=== PATIENT | female | born 1945 | race Caucasian/White ===

== ENCOUNTER → 2016-08-16 | Outpatient (CLI) | payer MEDICARE, OTHER ==
[~2016-08-16] MED LIST: AMLODIPINE BES2.5 MG PO; ASPIRIN EC81 MG PO; BENADRYL25 MG PO; CALCIUM 600 +1 EAC6 PO; CARVEDILOL12.5 MG PO; CELEXA20 MG PO; COLACE100 MG PO; DAILY VALUE1 EACH PO; DESYREL50 MG PO; FLEXERIL10 MG PO; IBUPROFEN800 MG PO; LIPITOR20 M1 PO; MIRALAX17 GM PO; OMEPRAZOLE40 MG PO; ROXICODONE 5MG (5 MG PO; TYLENOL EXTRA500 MG PO; VITAMIN D1000 UNIT PO; XANAX0.25 MG PO; XARELTO10 MG PO
== END | disposition disaster alternative care site (69) ==
LOC: GRAD 11:30
DX: M25.561 Pain in right knee (principal); M71.21 Synovial cyst of popliteal space [Baker], right knee; M25.461 Effusion, right knee

== ENCOUNTER 2016-09-04 14:39 | Emergency (ER) | payer MEDICARE, OTHER ==
--- NOTE | ~2016-09-04 | ER ---
PATIENT'S NAME: DARELL LEAL [facility] AGE: 71 Y [address] ROOM: [place] [address] LOCATION: ED ADMIT DATE: 09/04/2016 ER/Outpatient Report DISCHARGE DATE: 09/04/2016 FAMILY PHYSICIAN: Pawel Gardiner MD ATTENDING PHYSICIAN: William Rincon Time of Arrival: 1446 hours. Time of Evaluation/Exam: 1447 hours. CHIEF COMPLAINT: Bilateral knee pain. HISTORY OF PRESENT ILLNESS: The patient states that she is scheduled to have her left knee replaced on September [address] Welsh. She states that her pain has increased tremendously in the last 2 days and that she just can't take it anymore. She states that her left knee joint has been worse than the right until she fell in February, now both knees hurt, but again the left one is worse than the right so we are going to start with that one for her surgery. She has not fallen recently, has not had any trauma to her knees. 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 She has been taking ibuprofen without relief. ALLERGIES: NO KNOWN ALLERGIES. CURRENT MEDICATIONS: On her chart and reviewed by me. PAST MEDICAL HISTORY: 1. Chronic back pain. 2. Knee pain. 3. Depression. 4. Hypertension. 5. Anxiety. 6. Hypercholesterolemia. PAST SURGICAL HISTORY: Back surgery. SOCIAL HISTORY: She presents to the ER accompanied by her . Denies use of tobacco, drugs, or alcohol. REVIEW OF SYSTEMS: PATIENT'S NAME: DARELL LEAL [facility] AGE: 71 Y [address] ROOM: [place] [address] LOCATION: ED ADMIT DATE: 09/04/2016 ER/Outpatient Report DISCHARGE DATE: 09/04/2016 FAMILY PHYSICIAN: Pawel Gardiner MD ATTENDING PHYSICIAN: William Rincon All negative other than those mentioned in the HPI. PHYSICAL EXAMINATION: VITAL SIGNS: She weighed 104.7 kg. Blood pressure is 149/66, pulse is 67, respirations 16, temperature of 97.6, and O2 saturation is 97% on room air. GENERAL APPEARANCE: She is awake, alert, and oriented x4. SKIN: [place], warm, and dry. RESPIRATORY: Respirations are even and nonlabored. Lung sounds are clear throughout. HEART: Regular rate and rhythm. ABDOMEN: Soft and nondistended. Bowel sounds are present. EXTREMITIES: She has generalized discomfort of her knees when she is up and walking. She has nonpitting edema of the ankle areas bilaterally. EMERGENCY DEPARTMENT COURSE: Dr. Welsh did call prior to the patient coming in. The patient's had called him and stated that the patient was in so much pain that she just wanted him to shoot her. I did question the patient regarding her desire to harm herself and she states no, I just want the pain to get better. She has no intention of harming herself at this time. The patient was given [place] 5/325 x2 tablets. Monitored for approximately 10 minutes. She states she has had the medicine before, has never had a reaction before. She denied having any difficulty breathing. IMPRESSION: Bilateral knee pain. PLAN: Home, rest. Ice or heat to the knees. Prescription was written for [place]. She is to follow up with Dr. Welsh or her primary provider if symptoms worsen. She verbalizes understanding. REMIGIO MARIE APRN FOR DO JAMES RAUSCH/madeleine /[id number] d: 09/04/162057 t: 09/08/16699, OUTPATIENT REPORT
== END 2016-09-04 15:16 | disposition disaster alternative care site (69) ==
LOC: GMED 14:39
DX: M25.561 Pain in right knee (principal); M25.562 Pain in left knee; G89.29 Other chronic pain; F32.9 Major depressive disorder, single episode, unspecified; I10 Essential (primary) hypertension; F41.9 Anxiety disorder, unspecified; E78.00 Pure hypercholesterolemia, unspecified; Z79.1 Long term (current) use of non-steroidal anti-inflammatories (NSAID); Z98.890 Other specified postprocedural states

== ENCOUNTER 2016-09-13 08:00 | Inpatient (IN) | payer MEDICARE, OTHER ==
[~2016-09-13] VITALS: Ht 160 cm; Wt 100.9 kg
--- NOTE | ~2016-09-13 | OR ---
PATIENT'S NAME: DARELL LEAL [facility] AGE: 71 Y [address] ROOM: [place] [address] LOCATION: [facility] ADMIT DATE: 09/27/2016 OR/Procedure Report DISCHARGE DATE: FAMILY PHYSICIAN: Pawel Gardiner MD ATTENDING PHYSICIAN: GWEN NEVILLE SURGEON: Gwen Neville MD GOOD HUMOR VENDOR: 1. KATTY Kirkland. 2. Wallace Kirk CST/DAWOOD. DATE OF PROCEDURE: 09/27/2016 PREOPERATIVE DIAGNOSIS: Degenerative joint disease, left knee. POSTOPERATIVE DIAGNOSIS: Degenerative joint disease, left knee. OPERATION: Left total knee arthroplasty with computer navigation. ANESTHESIA: Spinal anesthesia plus adductor canal block plus periarticular local anesthesia (ropivacaine with epinephrine and Toradol). ESTIMATED BLOOD LOSS: Less than 10 mL. DRAIN: None. SPECIMEN: None. COMPLICATIONS: None. IMPLANT SYSTEM: Nasreen Triathlon. 1. Size 3 left posterior stabilized femoral component. 2. Size 2 universal modular tibial baseplate. 3. An 11 mm posterior stabilized size 2 X3 tibial polyethylene insert. 4. A 29 mm oval X3 patellar component. INDICATIONS FOR SURGERY: Darell Leal is a 71-year-old female who presents with advanced left knee degenerative joint disease and associated severely compromised activities of daily living. The patient has decided to proceed with knee replacement after having been thoroughly counseled regarding the associated risks, benefits, and limitations. We have specifically reviewed the risks and implications of infection, deep venous thrombosis, pulmonary embolism, mortality, neurovascular complications, blood transfusion (and associated potential for disease transmission or transfusion reaction), stiffness, instability, mechanical deterioration of the components (due to wear and or loosening), and the potential need for revision. We have also emphasized the importance of active involvement and compliance with post- operative physical therapy as a means of optimizing range of motion and [facility] 71 [facility] [address] ROOM: [place] [address] LOCATION: [facility] ADMIT DATE: 09/27/2016 OR/Procedure Report DISCHARGE DATE: FAMILY PHYSICIAN: Pawel Gardiner MD ATTENDING PHYSICIAN: GWEN NEVILLE functional recovery. Informed consent has been granted. DESCRIPTION OF PROCEDURE: The patient was positioned supine after administration of anesthesia and prophylactic antibiotics. A well-padded pneumatic tourniquet was placed around the left proximal thigh, and the left lower extremity was prepped and draped with vigilant sterile technique. The patient's name as well as the intended operative side and procedure were confirmed with a verbal time-out involving myself, the circulating nurse, the scrub nurse, and the anesthesiologist. Examination under anesthesia demonstrated no active skin lesions or masses. There was a large effusion. There was no erythema. There was no abnormal warmth. There was a large soft tissue envelope surrounding the thigh, knee, and calf. Range of motion under anesthesia was from a 2-degree flexion contracture to 130 degrees of flexion. There was no ligamentous insufficiency. The left lower extremity was elevated and exsanguinated with an Esmarch wrap, and the pneumatic tourniquet was inflated to 300mmHg. The knee was approached through a longitudinal midline incision. A medial parapatellar arthrotomy was performed and the patella was everted. Examination of the joint space demonstrated a large amount of benign-appearing translucent synovial fluid. There was mild generalized nonproliferative synovitis. There were no loose bodies. There was a small osteophyte at the intercondylar notch. The cruciate ligaments were intact. There was complex degenerative tearing of the medial meniscus with a large horizontal cleavage component between the 10 o'clock and 12 o'clock positions. The lateral meniscus was intact. There were small osteophytes at the medial and inferior margins of the patella. There was high-grade partial-thickness articular cartilage loss throughout the majority of the patella. There were intermixed grade 3 and grade 4 degenerative changes throughout the lateral two-thirds of the femoral trochlea. There were small osteophytes at the medial and lateral margins of the femoral trochlea as well as the lateral tibial plateau and medial tibial plateau. There were moderate-sized osteophytes at the medial and lateral femoral condyles. There was full-thickness loss of articular cartilage involving 80% of the medial femoral condyle and a 1.5 cm diameter region at the medial tibial plateau. There was high-grade partial-thickness articular cartilage loss throughout the remainder of the medial tibial plateau. There was a 1 cm diameter region of full-thickness articular cartilage loss at the central aspect of the lateral femoral condyle. There were moderate grade 3 degenerative changes at the medial half of the lateral tibial plateau. Remnants of the menisci and cruciate ligaments were excised. The [email or web address] computer navigation femoral tracker was pinned in place at the distal aspect PATIENT'S NAME: DARELL LEAL [facility] AGE: 71 Y [address] ROOM: [id number] [place], [place] [address] LOCATION: [facility] ADMIT DATE: 09/27/2016 OR/Procedure Report DISCHARGE DATE: FAMILY PHYSICIAN: Pawel Gardiner MD ATTENDING PHYSICIAN: GWEN NEVILLE of the femoral trochlea. Absence of motion between the femur and the tracking device was confirmed manually and visually. Femoral osseous landmarks were obtained in order to calibrate the computer navigation system. Landmarks included the center of rotation of the ipsilateral hip, the center-point of the distal femur, the femoral AP axis, 57 points on the medial femoral condyle articular surface, and 57 points on the lateral femoral condyle articular surface. The [email or web address] computer navigation system was subsequently utilized to position the distal femoral resection block such that the distal femoral resection was performed perfectly perpendicular to the femoral mechanical axis. The distal femoral resection was performed with a [employer] oscillating saw. The [email or web address] computer navigation tibial tracker was pinned in place at the anterior aspect of the tibial plateau. Absence of motion between the tibia and the tracking device was confirmed manually and visually. Tibial osseous landmarks were obtained in order to calibrate the computer navigation system. Landmarks included the center-point of the tibial plateau, the AP tibial axis, 57 points on the medial tibial plateau articular surface, 57 points on the lateral tibial plateau articular surface, the medial malleolus, and the lateral malleolus. The [email or web address] computer navigation system was subsequently utilized to position the proximal tibial resection block such that the proximal tibial resection was performed perfectly perpendicular to the tibial mechanical axis. The proximal tibial resection was performed with a [employer] Precision oscillating saw. Perpendicularity of the tibial resection with respect to the tibial shaft axis was reconfirmed by inserting a spacer- block attached to an extramedullary guide jose daniel. External rotation of the anterior and posterior femoral resections was set parallel to the epicondylar axis and carefully adjusted in order to create a rectangular flexion gap. The box resection was performed with a reciprocating saw. Anterior and posterior chamfer resections were performed with the oscillating saw. Posterior condyle osteophytes were excised with an osteotome. All other osteophytes were excised with a rongeur. Resection of all remnants of the menisci was reconfirmed. Flexion and extension gaps were confirmed to be symmetric and well balanced with a spacer-block technique. The patella resection was performed with an oscillating saw such that the composite thickness of the reconstructed patella was equivalent to the thickness of the [place] patella. Patella tracking was optimal, and there was no need for a lateral retinacular release. All trial components were removed and all prepared osseous surfaces were thoroughly irrigated with pulsatile saline lavage and dried prior to cementing all three components in a single stage using Midway Simplex cement containing pre-mixed tobramycin. All extruded excess cement was removed. The entire PATIENT'S NAME: DARELL LEAL [facility] AGE: 71 Y [address] ROOM: [address] [address] LOCATION: [facility] ADMIT DATE: 09/27/2016 OR/Procedure Report DISCHARGE DATE: FAMILY PHYSICIAN: Pawel Gardiner MD ATTENDING PHYSICIAN: GWEN NEVILLE joint space was thoroughly inspected and thoroughly irrigated with bacteriostatic pulsatile saline lavage to assure that there was no residual debris of any sort. Final range of motion was from full extension (with no passive hyperextension) to 130 degrees of flexion. Patella tracking was reconfirmed to be optimal. There was very good anteroposterior stability at 90 degrees of flexion. There was 0 mm of medial lift-off to valgus stress in full extension. There was less than 1 mm of lateral lift-off to varus stress in full extension. The arthrotomy was closed with multiple simple and [id number] interrupted #1 Vicryl. Subcutaneous tissues were thoroughly re-irrigated with bacteriostatic pulsatile saline lavage. Subcutaneous tissues were re- approximated with simple buried interrupted #0 Vicryl sutures. The skin was closed with simple buried interrupted 2-0 Vicryl sutures followed by surgical quang. The dressing consisted of Xeroform gauze, 4x4 gauze, ABD pads and two 6-inch Zack Wraps. There were no intra-operative complications. It should be noted that the physician's physicians assistant played an active, integral role throughout this entire operation. By providing expert retraction, they greatly facilitated and expedited safe and effective exposure of the distal femur, proximal tibia and patella for preparation and implantation of the components. They were also actively involved in the patient's positioning, prepping and draping, as well as wound closure. MD ESTHELA LEE/madeleine /[id number] d: 09/27/16 1212 t: 10/08/16 0751, OPERATIVE SUMMARY
--- NOTE | ~2016-09-13 | DS ---
PATIENT'S NAME: DARELL LEAL [facility] AGE: 71 Y [address] ROOM: [place] [address] LOCATION: [facility] ADMIT DATE: 09/27/2016 Discharge Summary DISCHARGE DATE: 09/29/2016 FAMILY PHYSICIAN: Pawel Gardiner MD ATTENDING PHYSICIAN: Gwen Neville PRIMARY DIAGNOSIS: Degenerative joint disease of the left knee. SECONDARY DIAGNOSES: 1. Depression and anxiety. 2. Obesity. 3. Hypertension. 4. Hypercholesterolemia. 5. Chronic lumbar spine pain. PROCEDURE PERFORMED: Left total knee arthroplasty. HISTORY: The patient is a 71-year-old female, who presents with advanced left knee degenerative joint disease and associated severely compromised activities of daily living. The patient has decided to proceed with total knee arthroplasty after having been thoroughly counseled regarding the risks, benefits, limitations and alternatives. Please refer to the outpatient clinic notes and admission history and physical for this patient. HOSPITAL COURSE: The patient underwent a left total knee arthroplasty on 09/27/2016 without complications. Spinal anesthesia plus adductor canal block plus periarticular local anesthesia was utilized. The patient received 24 hours of perioperative prophylactic antibiotics and remained hemodynamically stable, neurovascularly intact throughout the entire hospital course. The postoperative prophylactic deep venous thrombosis prophylaxis consisted of Xarelto, early mobilization and pneumatic compression devices. Daily physical therapy for gait training, transfer training range of motion and quadriceps isometric exercises were received. The patient progressed well in physical therapy. On the date of discharge, 09/29/2016, the incision at the knee was healing well and showed no signs of infection. DISPOSITION: Home. DISCHARGE ACTIVITY: The patient is to bear weight as tolerated with range of motion and quadriceps isometric exercises as instructed. The operative extremity is to be elevated at least 90% of the day. There is to be sterile 4x4 gauze dressings to the incision daily. Dr. Neville is to be notified immediately if there is any increased pain, fevers, chills erythema or drainage. PATIENT'S NAME: DARELL LEAL [facility] AGE: 71 Y [address] ROOM: [place] [address] LOCATION: [facility] ADMIT DATE: 09/27/2016 Discharge Summary DISCHARGE DATE: 09/29/2016 FAMILY PHYSICIAN: Pawel Gardiner MD ATTENDING PHYSICIAN: Gwen Neville DISCHARGE MEDICATIONS: 1. Xarelto 10 mg 1 tab p.o. daily for 12 days for postoperative DVT prophylaxis. 2. Oxycodone 5 mg 1 to 2 tabs p.o. every 4 hours p.r.n. for pain. 3. Cyclobenzaprine 10 mg 1 tab t.i.d. p.r.n. for muscle spasms. 4. Acetaminophen 500 mg 2 tablets p.o. every 6 hours p.r.n. for pain. 5. She was then instructed to continue all her other pre-admission medications as instructed by her internal medicine doctor. FOLLOWUP: Followup appointment is to be with Dr. Neville's office on 10/04/2016. SILVANO MASON PA-C FOR GWEN NEVILLE MD SMW/modl /[id number] d: 10/04/16 2222 t: 10/07/16 0933, DISCHARGE SUMMARY
[2016-09-13] MEDS ORDERED: CARVEDILOL12.5 MG PO (08:11)
[2016-09-13] MEDS ORDERED: AMLODIPINE BES2.5 MG PO (08:11)
[2016-09-13] MEDS ORDERED: CELEXA20 MG PO (08:12)
[2016-09-13] MEDS ORDERED: DESYREL50 MG PO (08:12)
[2016-09-13] MEDS ORDERED: XANAX0.25 MG PO (08:12)
[2016-09-13] MEDS ORDERED: IBUPROFEN800 MG PO (08:13)
[2016-09-13] MEDS ORDERED: FLEXERIL10 MG PO (08:13)
[2016-09-13] MEDS ORDERED: LIPITOR20 M1 PO (08:14)
[2016-09-13] MEDS ORDERED: BENADRYL25 MG PO (08:14)
[2016-09-13] MEDS ORDERED: ASPIRIN EC81 MG PO (08:14)
[2016-09-13] MEDS ORDERED: CALCIUM 600 +1 EAC6 PO (08:15)
[2016-09-13] MEDS ORDERED: VITAMIN D1000 UNIT PO (08:15)
[2016-09-13] MEDS ORDERED: OMEPRAZOLE40 MG PO (08:16)
[2016-09-13] MEDS ORDERED: DAILY VALUE1 EACH PO (08:16)
[2016-09-27 06:06] LABS: ALBUMIN 3.8 gm/dL (3.5-5.0); ANION GAP 9.4 (10.0-19.0); CREATININE 1.1 mg/dL (0.5-1.1); PHOSPHORUS 3.8 mg/dL (2.5-4.9); POTASSIUM 3.4 mMol/L (3.7-5.1)
--- NOTE | 2016-09-27 17:08 | NUR ---
Significant Event: PT ARRIVED ON FLOOR AT 1045. POST OP VITALS COMPLETED. PT UP WITH 1 ASSIST TO THE COOMODE AND RECLINER. DOES WELL. WIGGLES TOES WELL. VOIDED X 2. IV FLUIDS CONT. OXYCODONE FOR PAIN WILL UPDATE YOU WITH TIME. DOES IS WELL. ICE TO KNEE. Follow up:
--- NOTE | 2016-09-28 03:33 | NUR ---
Significant Event: PATIENT ALERT AND ORIENTED X 3. VSS. TAKING PO AND VOIDING WITHOUT DIFFICULTY. UP WITH 1 ASSIST/GB/WALKER - STEADY. CSM'S TO LEFT KNEE WNL. JANES WRAP DRESSING TO L) TKA C/D/I. PAIN WELL CONTROLLED WITH OXYCODONE LAST AT 0300. L) KNEE ELEVATED AND EZ WRAP ON ALL OF SHIFT. PLEASANT AND COOPERTIVE WITH CARES. Follow up:
--- NOTE | 2016-09-28 12:08 | NUR ---
SPOKE TO PATIENT REGARDING CM AND OUR ROLE. PATIENT LIVES IN OWN HOME WITH SPOUSE AND IS PLANNING ON RETURNING THERE ONCE READY FOR DISCHARGE. PATIENT HAS ALL HER DME, SHE ANTICIPATES THAT SHE WILL DISCHARGE HOME TOMORROW. WILL CONT TO FOLLOW NEEDED.
--- NOTE | 2016-09-28 17:01 | NUR ---
patient doing well. up to bathroom with one assist. recliner. ambualtes with walker and gait belt one assist. oxycodone last at 1700. anisa wrap d/i. csm adequate-pulse thready. latex allergy. pleasant and cooperative.
--- NOTE | 2016-09-29 03:31 | NUR ---
Significant Event: A/O X 3. IV SALINE LOCK INTACT LEFT HAND FLUSHES WELL. INCENTIVE SPIROMETER USAGE [phone]. DENIES NUMBNESS OR TINGLING TO LOWER EXTREMITIES. MOVES EXTREMITIES. BILATERAL FOOT PUMPS TO FEET. ACEWRAP DRSGS DRY-INTACT TO LEFT KNEE. ROXYCODONE 5MG GIVEN X 2 LAST AT 2350 FOR PAIN RATE 2, LATER AT A 1. COMFORTABLE. TAKES FLUIDS, NO NAUSEA. AMBULATED TO BR WITH ONE ASSIST, WALKER AND GAITBELT, PAIN WITH MOVEMENT, VOIDED X 2 GOOD AMOUNTS. PASSING FLATUS, NO BM. SATS STAYED ABOVE 90% ON ROOMAIR. Follow up:
[2016-09-29] MEDS ORDERED: TYLENOL EXTRA500 MG PO (11:46)
[2016-09-29] MEDS ORDERED: COLACE100 MG PO (11:47)
[2016-09-29] MEDS ORDERED: MIRALAX17 GM PO (11:48)
[2016-09-29] MEDS ORDERED: ROXICODONE 5MG (5 MG PO (11:49)
[2016-09-29] MEDS ORDERED: XARELTO10 MG PO (11:49)
--- NOTE | 2016-09-29 14:35 | NUR ---
D: Patient dismissed to home with spouse assistance. Taking analgesic prn for pain with relief. Mepilex dressing dry and intact to lt knee. CSM WNL. Ambulates with walker and one assist. Patient and spouse voice understanding of dismissal instructions. Dismissed with dismissal instructions, RX and belonging.
== END 2016-09-29 14:30 | disposition disaster alternative care site (69) | DRG 470 ==
LOC: G3N 09-27 05:09
PROVIDERS: ADMIT Orthopaedic Surgery
PROC: XR2H021 Monitoring of Left Knee Joint using Intraoperative Knee Replacement Sensor, Open Approach, New Technology Group 1 (ICD-10-PCS; principal; 2016-09-27)
PROC: 0SRD0J9 Replacement of Left Knee Joint with Synthetic Substitute, Cemented, Open Approach (ICD-10-PCS; principal; 2016-09-27)
DX: M17.12 Unilateral primary osteoarthritis, left knee (principal)
CPT/HCPCS: C1713; C1776; J0690; J1100; J1885; J2001; J2795; J7120

== ENCOUNTER → 2016-09-16 | Outpatient (CLI) | payer MEDICARE, OTHER | END | disposition disaster alternative care site (69) | LOC: GNJRC 10:29 | DX: Z01.812 Encounter for preprocedural laboratory examination (principal); M17.12 Unilateral primary osteoarthritis, left knee ==

== ENCOUNTER → 2016-10-12 | Outpatient (CLI) | payer MEDICARE, OTHER ==
--- NOTE | ~2016-10-12 | ENPV ---
Vascular Lower Extremities DVT Study Procedure Demographics Patient Name DARELL LEAL Date of Study 10/12/2016 Patient Number [id number] Gender Female Date of 1945 Age 71 Visit Number [id number] Height Accession Number [id number] Weight Room Number BSA BMI Referring Blaise Cruz MD Interpreting Jevon Wiggins MD Physician Physician Physician Ordering Physician Blaise Cruz MD [employer] Delivery Driver Director Video Vaibhav Gunderson BS, RT Conclusions Summary No evidence of deep vein thrombosis or superficial thrombophlebitis in the left lower extremity . Difficult to compress mid to distal left superficial femoral vein due to pain. Procedure Type of Study: Veins:Lower Extremities DVT Study, Lower Extremity Left. Indications for Study:Swelling of Limb. Additional Indications:LT TKA Patient Status:Routine. Study Location:Inpatient Portable. Technical Quality:Adequate visualization. - Preliminary reported to:Dr. Welsh. Velocities are measured in cm/s ; Diameters are measured in cm Right Lower Extremities DVT Study Measurements Right 2D and Doppler Measurements + + + + +------+------+ + !Location !Visualized!Compressibility!Thrombosis!Signal!Reflux!Reflux ! ! ! ! ! ! ! !(sec) ! + + + + +------+------+ + !Common !Yes !Yes !None !Phasic!No ! ! !Femoral ! ! ! ! ! ! ! + + + + +------+------+ + Left Lower Extremities DVT Study Measurements Left 2D and Doppler Measurements + + + + +------+------+ + !Location !Visualized!Compressibility!Thrombosis!Signal!Reflux!Reflux ! ! ! ! ! ! ! !(sec) ! + + + + +------+------+ + !GSV Thigh !Yes !Yes !None !Phasic!No ! ! + + + + +------+------+ + !Common !Yes !Yes !None !Phasic!No ! ! !Femoral ! ! ! ! ! ! ! + + + + +------+------+ + !Prox !Yes !Yes !None !Phasic!No ! ! !Femoral ! ! ! ! ! ! ! + + + + +------+------+ + !Mid Femoral!Yes !Yes !None !Phasic!No ! ! + + + + +------+------+ + !Dist !Yes ! !None !Phasic!No ! ! !Femoral ! ! ! ! ! ! ! + + + + +------+------+ + !Popliteal !Yes !Yes !None !Phasic!No ! ! + + + + +------+------+ + !Gastroc !Yes !Yes !None !Phasic!No ! ! + + + + +------+------+ + !PTV !Yes !Yes !None !Phasic!No ! ! + + + + +------+------+ + !Peroneal !Yes !Yes !None !Phasic!No ! ! + + + + +------+------+ + Signature dtt: NATASHA TUCKER dtdora: 10/12/16 1407 Physician Self Edit
== END | disposition disaster alternative care site (69) ==
LOC: GCAR 13:54
DX: M79.89 Other specified soft tissue disorders (principal)